=== PATIENT | female | born 1980 | race Caucasian/White ===

== ENCOUNTER → 2016-06-07 | Outpatient (CLI) | payer BC ==
[2016-06-07 18:43] LABS: BASO % 0.7 % (0.0-1.0); EOS # 0.3 K/mm3 (0.0-0.50); EOS % 4.6 % (0.0-3.0); LARGE UNSTAINED CELL # 0.1 K/mm3 (0.0-0.4); LARGE UNSTAINED CELL % 1.3 % (0.0-4.0); LYMPH # 1.8 K/mm3 (1.5-4.5); LYMPH % 23.3 % (24.0-44.0); MEAN CORPUSCULAR HEMOGLOBIN 28.9 pg (27.0-33.0); MEAN CORPUSCULAR HGB CONC 31.9 g/dl (32.0-36.5); MEAN CORPUSCULAR VOLUME 90.5 fl (80.0-96.0); MONO # 0.3 K/mm3 (0.0-0.8); MONO % 4.6 % (0.0-5.0); NEUTROPHILS # 4.7 K/mm3 (1.8-7.7); NEUTROPHILS % 65.5 % (36.0-66.0); PLATELET COUNT, AUTOMATED 195 k/mm3 (150-450); RED CELL DISTRIBUTION WIDTH 14.5 % (11.5-14.5); WHITE BLOOD COUNT 7.2 K/mm3 (4.0-10.0)
[2016-06-07 18:59] LABS: PROLACTIN 4.2 NG/ML
[2016-06-07 19:06] LABS: FREE T4 1.78 NG/DL (0.76-1.46)
== END ==
LOC: M SMT 11:40
PROVIDERS: ATTEND Nurse Practitioner Women's Health
DX: N92.1 Excessive and frequent menstruation with irregular cycle (principal)

== ENCOUNTER → 2016-07-01 | Outpatient (CLI) | payer BC ==
[~2016-07-01] MED LIST: CENTCHW4 PO; FERR325T3 PO; IBUP600T26 PO; LORT5TAB PO; VITA500C10 PO
[2016-07-01 09:43] LABS: ALBUMIN 3.8 GM/DL (3.2-5.2); ALBUMIN/GLOBULIN RATIO 1.27 (1.00-1.93); ALKALINE PHOSPHATASE 74 U/L (45-117); ALT/SGPT 16 U/L (12-78); ANION GAP 6 MEQ/L (8-16); AST/SGOT 11 U/L (15-37); BILIRUBIN,TOTAL 0.3 MG/DL (0.2-1.0); BLOOD UREA NITROGEN 9 MG/DL (7-18); CARBON DIOXIDE LEVEL 25 MEQ/L (21-32); CHLORIDE LEVEL 111 MEQ/L (98-107); CREATININE FOR GFR 0.64 MG/DL (0.55-1.02); GLOMERULAR FILTRATION RATE > 60.0 (>60); GLUCOSE, FASTING 86 MG/DL (70-105); POTASSIUM SERUM 4.6 MEQ/L (3.5-5.1); SODIUM LEVEL 142 MEQ/L (136-145); TOTAL PROTEIN 6.8 GM/DL (6.4-8.2)
--- NOTE | 2016-07-01 10:48 | ECGEPIP ---
Stationary ECG Study [facility] Test Date: 2016-07-01 Pat Name: RULA ACR Department: Room: - Gender: F [employer] Supervisor: JOSE FRANCISCO : 1980 Requested By: Eugene Knox Order Number: [id number] Reading MD: Jason Wise Measurements Intervals [place] Rate: 60 P: 44 PA: 189 QRS: 51 QRSD: 88 T: 50 QT: 403 QTc: 404 Interpretive Statements SINUS RHYTHM WITH SINUS ARRHYTHMIA Poor R-wave progression V1-V3. No prior ECG available for comparison at the time of interpretation. Electronically Signed On 07-01-2016 10:48:07 EDT by Jason Wise
== END ==
LOC: M LAB 08:57
PROVIDERS: ATTEND Anesthesiology
DX: D50.9 Iron deficiency anemia, unspecified (principal)

== ENCOUNTER 2016-07-03 06:01 | Day surgery (SDC) | payer BC ==
[2016-07-03] VITALS (7 sets, daily range): BP systolic 84–100; BP diastolic 46–55
[~2016-07-03] VITALS: Ht 157.5 cm; Wt 64.0 kg
[~2016-07-03 06:01] MED LIST changes: -IBUP600T26 PO; -LORT5TAB PO; +LR 1,000 ML IV SCH
[2016-07-03] MEDS ORDERED: LR 1,000 ML IV SCH ×3 (06:15→09:30)
[2016-07-03 06:20] LABS: MEAN CORPUSCULAR HEMOGLOBIN 29.1 pg (27.0-33.0); MEAN CORPUSCULAR HGB CONC 32.6 g/dl (32.0-36.5); MEAN CORPUSCULAR VOLUME 89.2 fl (80.0-96.0); RED CELL DISTRIBUTION WIDTH 14.8 % (11.5-14.5); WHITE BLOOD COUNT 4.9 K/mm3 (4.0-10.0)
[2016-07-03 06:33] LABS: CONTROL LINE HCG INT CTR LINE PRESENT
[2016-07-03] MEDS ORDERED: GLYCOPYRROLATE INJ 0.2 MG/ML 2 ML VIAL As Ordered ONE (07:51)
[2016-07-03] MEDS ORDERED: fentaNYL 100 MCG/2 ML INJECTION (J3010) As Ordered ONE (07:51)
[2016-07-03] MEDS ORDERED: ROCURONIUM BROMIDE 50 MG/5 ML VIAL As Ordered ONE (07:51)
[2016-07-03] MEDS ORDERED: LIDOCAINE 2% INJ 100 MG/5 ML SDV (FOR ANES.) As Ordered ONE (07:51)
[2016-07-03] MEDS ORDERED: MIDAZOLAM INJ 2 MG/2 ML VIAL (J2250) As Ordered ONE (07:51)
[2016-07-03] MEDS ORDERED: PROPOFOL 200 MG/20 ML VIAL As Ordered ONE (07:51)
[2016-07-03] MEDS ORDERED: NEOSTIGMINE 1MG/ML 5 ML SYRINGE (J2710) As Ordered ONE (07:51)
[2016-07-03] MEDS ORDERED: ONDANSETRON 4MG/2ML VIAL (J2405) As Ordered ONE (07:52)
[2016-07-03] MEDS ORDERED: METOCLOPRAMIDE INJ 10MG/2ML VIAL (J2765) As Ordered ONE (07:52)
[2016-07-03] MEDS ORDERED: HYDROmorphone HCL 2 MG/ML 1ML VIAL (J1170) As Ordered ONE (08:09)
[2016-07-03] MEDS ORDERED: SEVOFLURANE INHAL SOLN 250 ML BTL As Ordered ONE (08:09)
[2016-07-03] MEDS ORDERED: DESFLURANE 240 ML INHALANT As Ordered ONE (08:09)
[2016-07-03] MEDS ORDERED: ePHEDrine SULFATE 25 MG/5 ML(5MG/ML) SYRINGE As Ordered ONE (08:10)
[2016-07-03] MEDS ORDERED: KETOROLAC 60 MG/2 ML VIAL (J1885) As Ordered ONE (08:18)
[2016-07-03] MEDS ORDERED: MORPHINE PCA 1MG/ML 100ML CADD As Ordered ONE (09:09)
[2016-07-03] MEDS ORDERED: PERCOCET 5MG/325MG TAB As Ordered ONE (09:09)
[2016-07-03] MEDS: PERCOCET 5MG/325MG TAB PO PRN ×2 (09:13→09:45)
[2016-07-03] MEDS ORDERED: ONDANSETRON 4MG/2ML VIAL (J2405) IV PRN (09:15)
[2016-07-03] MEDS ORDERED: METOCLOPRAMIDE INJ 10MG/2ML VIAL (J2765) IV PRN (09:15)
[2016-07-03] MEDS ORDERED: fentaNYL 100 MCG/2 ML INJECTION (J3010) IV PRN (09:15)
[2016-07-03] MEDS ORDERED: MEPERIDINE INJ 25 MG/ML VIAL (J2175) IV PRN (09:15)
[2016-07-03] MEDS ORDERED: EPIDURAL/PCA KEYS XX PRN (09:30)
[2016-07-03] MEDS ORDERED: NALOXONE INJ 0.4 MG/1 ML VIAL (J2310) IV PRN (09:30)
[2016-07-03] MEDS ORDERED: diphenhydrAMINE INJ 50MG/ML VIAL (J1200) IV PRN (09:30)
[2016-07-03] MEDS ORDERED: IBUPROFEN 600 MG TAB PO PRN (09:30)
[2016-07-03] MEDS ORDERED: NALBUPHINE HCL 10 MG/ML AMP (J2300) IV PRN (09:30)
[2016-07-03] MEDS ORDERED: MORPHINE PCA 1MG/ML 100ML CADD IV PRN (09:30)
--- NOTE | 2016-07-03 12:09 | RO ---
DATE OF PROCEDURE: 07/03/2016 PREOPERATIVE DIAGNOSIS: Pain, bleeding, failed conservative efforts, dissatisfaction with Nexplanon, dyspareunia, uterine tenderness. POSTOPERATIVE DIAGNOSIS: Pain, bleeding, failed conservative efforts, dissatisfaction with Nexplanon, dyspareunia, uterine tenderness. PROCEDURE: Total vaginal hysterectomy with left salpingectomy. The patient retains her ovaries and her right fallopian tube. Removal of Nexplanon from left arm. SURGEON: Dr. Darcie Owen CATERPILLAR DRIVER: Aleida Mehta ANESTHESIA: General endotracheal anesthesia. BRIEF DESCRIPTION OF PROCEDURE AND FINDINGS: Flores was brought to the operating room where sufficient general endotracheal anesthesia was induced and she was prepped, draped and positioned in the usual sterile fashion. We went ahead and removed the Nexplanon first. It was in the left arm and had been marked preoperatively. Then, made a small incision over the insertion site and using careful dissection around the capsule removed the Nexplanon entirely. We did not have any difficulty with this procedure. We then with the small incision rather than sewing it went ahead and glued it and placed Steri-Strip and that portion of the procedure was done. We turned our attention then to the pelvis where the bladder was emptied. The anterior and posterior aspect of the cervix were grasped with single tooth tenacula. Then, with anterior and posterior retractor in place, a circumferential incision was made around the base of the cervix. The cardinal ligaments were isolated, clamped, transected, and ligated. The posterior reflection of the peritoneum was then entered and the uterosacral ligaments clamped, transected, and ligated and marked for later reattachment to the cuff. We then continued the dissection anteriorly where the reflection was not reached immediately, but we carefully sharply dissected the tissues away so as to avoid any injury to the bladder. I isolated the uterine vasculature and carefully clamped, transected and ligated it. Then subsequently also incised the reflection of the peritoneum anteriorly and continued clamping, transecting and ligating the uterine vasculature in a sequential fashion using Merissa'Meraz clamps, super cut scissors and a #0 Vicryl suture which was used throughout. We then reached the level of the utero-ovarian suspensory ligaments and the round ligaments. These too were clamped, transected and ligated, as were the fallopian tubes because of their proximity to the utero-ovarian suspensory ligament and our desire to avoid any injury to the ovaries, which this 35-year-old patient of course wanted to keep. After removal of the uterus, we then went back with the Rohan and were able to deliver the fimbria on the left side and then proceed to get the rest of that left tube and we clamped, transected and ligated the pedicle to the tube without any evidence of injury to the ovary and watched those pedicles for some time before turning to the right side. The tube on the right side was scarred around behind the ovary and I could not see it. Although the ovary was normal in appearance, I could not see an access to that tube that would not have the risk of compromising the ovarian blood supply and so decision was made just to leave that fallopian tube. Each of the pedicles were then carefully evaluated. We had good hemostasis. Angle stitches of #0 Vicryl were taken and of course the uterosacrals were reattached to the cuff. The cuff was closed with a running stitch of #0 Vicryl in the usual fashion with good approximation and hemostasis achieved. The procedure was then ended. Estimated blood loss for the procedure was about 30 mL. Fluid replacement was crystalloid. Complications: None. Condition and Disposition: Flores tolerated the procedure well and was recovering in the recovery room in good condition.
[2016-07-04] VITALS: BP 98/53
[2016-07-04 04:00] VITALS: BP 109/58
[2016-07-04] MEDS ORDERED: NORCO, ANEXSIA 5/325MG TABLET (HYDROcodone/ACETAMINOPHEN) PO PRN (06:00)
[2016-07-04] MEDS ORDERED: LORT5TAB PO (08:42)
[2016-07-04] MEDS ORDERED: IBUP600T26 PO (08:42)
[2016-07-04 09:30] VITALS: BP 104/61
== END 2016-07-04 10:45 | disposition home or self-care (01) ==
LOC: M SDC 06:01 → M PED 10:25 → M SDC 17:50 → M PED 17:50 → M SDC 07-04 10:45
PROVIDERS: ATTEND Obstetrics & Gynecology
DX: N92.0 Excessive and frequent menstruation with regular cycle (principal); R10.2 Pelvic and perineal pain; N94.10 Unspecified dyspareunia; D64.9 Anemia, unspecified; K90.9 Intestinal malabsorption, unspecified; Z98.84 Bariatric surgery status; F17.210 Nicotine dependence, cigarettes, uncomplicated; Z79.899 Other long term (current) drug therapy
CPT/HCPCS: 36415; 58262; 84703; 85027; 86850; 86900; 86901; 88309; J0690; J1170; J1885; J2250; J2405; J2710; J2765; J3010

== ENCOUNTER → 2016-07-09 | Outpatient (CLI) | payer BC ==
[~2016-07-09] MED LIST changes: +IBUP600T26 PO; +LORT5TAB PO; -LR 1,000 ML IV SCH
[2016-07-09 16:14] LABS: BASO % 0.6 % (0.0-1.0); EOS # 0.3 K/mm3 (0.0-0.50); EOS % 4.5 % (0.0-3.0); LARGE UNSTAINED CELL # 0.1 K/mm3 (0.0-0.4); LARGE UNSTAINED CELL % 0.9 % (0.0-4.0); LYMPH # 1.7 K/mm3 (1.5-4.5); LYMPH % 26.1 % (24.0-44.0); MEAN CORPUSCULAR HEMOGLOBIN 28.4 pg (27.0-33.0); MEAN CORPUSCULAR HGB CONC 31.4 g/dl (32.0-36.5); MEAN CORPUSCULAR VOLUME 90.3 fl (80.0-96.0); MONO # 0.3 K/mm3 (0.0-0.8); MONO % 4.8 % (0.0-5.0); PLATELET COUNT, AUTOMATED 248 k/mm3 (150-450); WHITE BLOOD COUNT 6.3 K/mm3 (4.0-10.0)
== END ==
LOC: M ADAMS 13:02
PROVIDERS: ATTEND Physician Assistant
DX: R42 Dizziness and giddiness (principal)

== ENCOUNTER → 2016-07-28 | Outpatient (REF) | payer BC ==
[2016-07-28 12:55] LABS: BASO % 0.6 % (0.0-1.0); EOS # 0.4 K/mm3 (0.0-0.50); EOS % 6.6 % (0.0-3.0); LARGE UNSTAINED CELL # 0.1 K/mm3 (0.0-0.4); LARGE UNSTAINED CELL % 1.2 % (0.0-4.0); LYMPH % 29.5 % (24.0-44.0); MEAN CORPUSCULAR HEMOGLOBIN 29.3 pg (27.0-33.0); MEAN CORPUSCULAR HGB CONC 32.3 g/dl (32.0-36.5); MEAN CORPUSCULAR VOLUME 90.9 fl (80.0-96.0); MONO # 0.3 K/mm3 (0.0-0.8); MONO % 3.9 % (0.0-5.0); NEUTROPHILS # 3.7 K/mm3 (1.8-7.7); NEUTROPHILS % 58.2 % (36.0-66.0); PLATELET COUNT, AUTOMATED 170 k/mm3 (150-450); RED CELL DISTRIBUTION WIDTH 15.9 % (11.5-14.5); WHITE BLOOD COUNT 6.4 K/mm3 (4.0-10.0)
[2016-07-28 13:18] LABS: FOLATE 6.6 NG/ML
[2016-07-28 13:19] LABS: VITAMIN B12 LEVEL 845 PG/ML
[2016-07-28 13:34] LABS: ALBUMIN 3.9 GM/DL (3.2-5.2); ALBUMIN/GLOBULIN RATIO 1.11 (1.00-1.93); ALKALINE PHOSPHATASE 59 U/L (45-117); ALT/SGPT 16 U/L (12-78); ANION GAP 6 MEQ/L (8-16); AST/SGOT 10 U/L (15-37); BILIRUBIN,TOTAL 0.4 MG/DL (0.2-1.0); BLOOD UREA NITROGEN 9 MG/DL (7-18); CALCIUM LEVEL 8.6 MG/DL (8.5-10.1); CARBON DIOXIDE LEVEL 27 MEQ/L (21-32); CHLORIDE LEVEL 109 MEQ/L (98-107); CHOLESTEROL LEVEL 187 MG/DL (<200); CREATININE FOR GFR 0.68 MG/DL (0.55-1.02); FERRITIN 25 NG/ML (8-252); FREE T4 1.83 NG/DL (0.76-1.46); GLOMERULAR FILTRATION RATE > 60.0 (>60); GLUCOSE, FASTING 94 MG/DL (70-105); MAGNESIUM LEVEL 2.2 MG/DL (1.8-2.4); POTASSIUM SERUM 4.5 MEQ/L (3.5-5.1); SODIUM LEVEL 142 MEQ/L (136-145); TOTAL PROTEIN 7.4 GM/DL (6.4-8.2); TRIGLYCERIDES LEVEL 73 MG/DL (<150)
== END ==
LOC: M SFHCADAM 09:29
PROVIDERS: ATTEND Physician Assistant Medical
DX: Z98.890 Other specified postprocedural states (principal); D50.9 Iron deficiency anemia, unspecified; D49.7 Neoplasm of unspecified behavior of endocrine glands and other parts of nervous system

== ENCOUNTER 2016-08-01 09:03 | Outpatient (CLI) | payer BC ==
[~2016-08-01] VITALS: Ht 157.5 cm; Wt 64.0 kg
[2016-08-01] MEDS ORDERED: IRON SUCROSE 25 MG in NS 50 ML IV ONE (10:00)
[2016-08-01] MEDS ORDERED: IRON SUCROSE 75 MG in NS 100 ML IV ONE (11:00)
== END 2016-08-01 13:00 | disposition home or self-care (01) ==
LOC: M INFU 09:03
PROVIDERS: ATTEND Physician Assistant Medical
DX: D50.9 Iron deficiency anemia, unspecified (principal); Z79.899 Other long term (current) drug therapy
CPT/HCPCS: 96365; 96366; J1756

== ENCOUNTER 2016-08-08 11:46 | Outpatient (CLI) | payer BC ==
[~2016-08-08] VITALS: Ht 154.9 cm; Wt 63.6 kg
[2016-08-08] MEDS ORDERED: IRON SUCROSE 200 MG in NS 200 ML IV ONE (13:00)
== END 2016-08-08 15:00 | disposition home or self-care (01) ==
LOC: M INFU 11:46
PROVIDERS: ATTEND Physician Assistant Medical
DX: D50.9 Iron deficiency anemia, unspecified (principal); D49.7 Neoplasm of unspecified behavior of endocrine glands and other parts of nervous system; Z98.84 Bariatric surgery status; F17.210 Nicotine dependence, cigarettes, uncomplicated; Z79.1 Long term (current) use of non-steroidal anti-inflammatories (NSAID); Z79.899 Other long term (current) drug therapy
CPT/HCPCS: 96365; 96366; J1756

== ENCOUNTER 2016-08-14 08:45 | Outpatient (CLI) | payer BC ==
[~2016-08-14] VITALS: Ht 154.9 cm; Wt 63.6 kg
[2016-08-14] MEDS ORDERED: IRON SUCROSE 200 MG in NS 200 ML IV ONE (09:15)
== END 2016-08-14 11:15 | disposition home or self-care (01) ==
LOC: M INFU 08:45
PROVIDERS: ATTEND Physician Assistant Medical
DX: D50.9 Iron deficiency anemia, unspecified (principal); Z79.899 Other long term (current) drug therapy; Z72.0 Tobacco use; Z98.84 Bariatric surgery status
CPT/HCPCS: 96365; 96366; J1756

== ENCOUNTER → 2016-09-25 | Outpatient (CLI) | payer BC ==
--- NOTE | 2016-09-26 10:38 | REP ---
REASON FOR EXAM: Followup pituitary tumor. The latest prior examination 11/08/2010 was reviewed. The prior examination showed a pituitary mass, particularly right-sided measuring 9 mm transverse x 8 mm anterior to posterior x 6.5 mm cephalocaudal dimensions. The mass was seen to extend into the suprasellar cistern on the prior exam and was also seen to deviate the infundibulum to the left. No cavernous sinus extension was noted and the optic chiasm and hypothalamus were un-insulted by the mass. Today's examination was performed before and after the administration of intravenous gadolinium. Gadolinium utilized 6.4 mL of ProHance. Once again, note is made of a pituitary gland mass, which today's measures 1.2 cm transverse dimension x 9 mm anterior to posterior x 1.1 cm inferior. Note is again made of infundibular deviation to the left. Suprasellar cistern extension is again noted and seen to be increased from the prior exam. No definite cavernous sinus extension is noted and once again, the optic chiasm and hypothalamus are un-insulted. Generalized brain imaging obtained during the acquisition of this exam shows no change when compared to the prior exam. IMPRESSION: The pituitary tumor, as described above, has increased in size. Signed by Ben Marvin DO 09/26/2016 11:53 A
== END ==
LOC: M RAD 18:10
PROVIDERS: ATTEND Physician Assistant Medical
DX: D49.7 Neoplasm of unspecified behavior of endocrine glands and other parts of nervous system (principal)
CPT/HCPCS: 70553; A9576

== ENCOUNTER → 2016-09-28 | Outpatient (REF) | payer BC ==
[2016-09-28 13:14] LABS: MEAN CORPUSCULAR HEMOGLOBIN 31.7 pg (27.0-33.0); MEAN CORPUSCULAR HGB CONC 33.2 g/dl (32.0-36.5); MEAN CORPUSCULAR VOLUME 95.3 fl (80.0-96.0); RED CELL DISTRIBUTION WIDTH 15.2 % (11.5-14.5); WHITE BLOOD COUNT 8.1 K/mm3 (4.0-10.0)
== END ==
LOC: M SFHCADAM 10:35
PROVIDERS: ATTEND Physician Assistant Medical
DX: D50.9 Iron deficiency anemia, unspecified (principal)

== ENCOUNTER → 2016-11-08 | Outpatient (REF) | payer BC ==
[~2016-11-08] MED LIST changes: +IBUP-1022 PO; -IBUP600T26 PO
[2016-11-08 18:05] LABS: PERCENT SATURATION 35.3 % (13.2-45.0)
== END ==
LOC: M SFHCADAM 15:25
PROVIDERS: ATTEND Physician Assistant Medical
DX: D50.9 Iron deficiency anemia, unspecified (principal)

== ENCOUNTER → 2016-12-14 | Outpatient (REF) | payer BC | LOC: M SFHCADAM 09:46 | PROVIDERS: ATTEND Physician Assistant Medical | DX: D50.9 Iron deficiency anemia, unspecified (principal) ==

== ENCOUNTER 2017-01-15 08:08 | Outpatient (CLI) | payer BC ==
[2017-01-15] MEDS ORDERED: IRON SUCROSE 100 MG in NS 100 ML IV ONE (09:00)
== END 2017-01-15 10:00 | disposition home or self-care (01) ==
LOC: M INFU 08:08
PROVIDERS: ATTEND Physician Assistant Medical
DX: D50.9 Iron deficiency anemia, unspecified (principal); Z98.84 Bariatric surgery status; Z72.0 Tobacco use; Z79.899 Other long term (current) drug therapy
CPT/HCPCS: 96365; J1756

== ENCOUNTER → 2017-01-18 | Outpatient (REF) | payer BC ==
[2017-01-18 16:24] LABS: FOLLICLE STIMULATING HORMONE 7.3 mIU/mL; LUTEINIZING HORMONE 1.7 mIU/mL; PROLACTIN 7.3 NG/ML
[2017-01-18 17:18] LABS: FREE T4 1.68 NG/DL (0.76-1.46)
== END ==
LOC: M LABDRAW1 14:27
PROVIDERS: ATTEND Internal Medicine Endocrinology, Diabetes & Metabolism
DX: D35.2 Benign neoplasm of pituitary gland (principal)

== ENCOUNTER 2017-01-29 08:21 | Outpatient (CLI) | payer BC ==
[~2017-01-29] VITALS: Ht 154.9 cm; Wt 63.6 kg
[2017-01-29] MEDS ORDERED: IRON SUCROSE 200 MG in NS 200 ML IV ONE (09:00)
== END 2017-01-29 12:05 | disposition home or self-care (01) ==
LOC: M INFU 08:21
PROVIDERS: ATTEND Physician Assistant Medical
DX: D50.9 Iron deficiency anemia, unspecified (principal); F41.9 Anxiety disorder, unspecified; F17.210 Nicotine dependence, cigarettes, uncomplicated; Z79.899 Other long term (current) drug therapy; Z98.84 Bariatric surgery status
CPT/HCPCS: 96365; 96366; J1756

== ENCOUNTER → 2017-04-13 | Outpatient (REF) | payer BC ==
[2017-04-13 13:06] LABS: CORTISOL AM 11.9 UG/DL (4.3-22.4)
[2017-04-13 13:30] LABS: FREE T4 1.55 NG/DL (0.76-1.46)
== END ==
LOC: M LABDRWAD 12:17
DX: D35.2 Benign neoplasm of pituitary gland (principal)
CPT/HCPCS: 84443

== ENCOUNTER → 2017-05-17 | Outpatient (REF) | payer BC ==
[2017-05-17 20:16] LABS: BASO % 0.5 % (0.0-1.0); EOS # 0.2 10^3/uL (0.0-0.50); EOS % 2.2 % (0.0-3.0); HEMATOCRIT 39.3 % (36.0-47.0); IMMATURE GRANULOCYTE % 0.1 % (0-3.0); LYMPH # 2.5 10^3/uL (1.5-4.5); LYMPH % 28.5 % (24.0-44.0); MEAN CORPUSCULAR HEMOGLOBIN 31.8 pg (27.0-33.0); MEAN CORPUSCULAR HGB CONC 33.1 g/dl (32.0-36.5); MEAN CORPUSCULAR VOLUME 96.1 fl (80.0-96.0); MONO # 0.4 10^3/uL (0.0-0.8); MONO % 4.1 % (0.0-5.0); NEUTROPHILS # 5.7 10^3/uL (1.8-7.7); NEUTROPHILS % 64.6 % (36.0-66.0); PLATELET COUNT, AUTOMATED 190 10^3/uL (150-450); RED BLOOD COUNT 4.09 10^6/uL (4.00-5.40); RED CELL DISTRIBUTION WIDTH 12.9 % (11.5-14.5); WHITE BLOOD COUNT 8.8 10^3/uL (4.0-10.0)
[2017-05-17 20:27] LABS: FERRITIN 63 NG/ML (8-252); IRON (FE) 108 UG/DL (50-170); PERCENT SATURATION 42.5 % (13.2-45.0); TOTAL IRON BINDING CAPACITY 254 UG/DL (250-450)
== END ==
LOC: M SFHCADAM 13:34
DX: D50.9 Iron deficiency anemia, unspecified (principal)
CPT/HCPCS: 83550

== ENCOUNTER → 2017-06-19 | Outpatient (CLI) | payer BC ==
[~2017-06-19] MED LIST changes: -CENTCHW4 PO; -FERR325T3 PO; -IBUP-1022 PO; -LORT5TAB PO; +PROHANCE 279.3MG/ML 15ML VIAL (A9576) As Ordered; -VITA500C10 PO
== END ==
LOC: M RAD 08:04
DX: D35.2 Benign neoplasm of pituitary gland (principal)
CPT/HCPCS: A9576

== ENCOUNTER → 2017-07-01 | Outpatient (REF) | payer BC ==
[2017-07-01 17:51] LABS: BASO # 0.1 10^3/uL (0.0-0.2); BASO % 0.9 % (0.0-1.0); EOS # 0.3 10^3/uL (0.0-0.50); EOS % 4.9 % (0.0-3.0); HEMATOCRIT 42.6 % (36.0-47.0); HEMOGLOBIN 14.1 g/dl (12.0-16.0); IMMATURE GRANULOCYTE % 0.1 % (0-3.0); LYMPH # 2.4 10^3/uL (1.5-4.5); LYMPH % 34.1 % (24.0-44.0); MEAN CORPUSCULAR HEMOGLOBIN 32.2 pg (27.0-33.0); MEAN CORPUSCULAR HGB CONC 33.1 g/dl (32.0-36.5); MEAN CORPUSCULAR VOLUME 97.3 fl (80.0-96.0); MONO # 0.4 10^3/uL (0.0-0.8); MONO % 6.3 % (0.0-5.0); NEUTROPHILS # 3.8 10^3/uL (1.8-7.7); NEUTROPHILS % 53.7 % (36.0-66.0); PLATELET COUNT, AUTOMATED 224 10^3/uL (150-450); RED BLOOD COUNT 4.38 10^6/uL (4.00-5.40); RED CELL DISTRIBUTION WIDTH 12.7 % (11.5-14.5)
[2017-07-01 18:14] LABS: FERRITIN 35 NG/ML (8-252); IRON (FE) 94 UG/DL (50-170); PERCENT SATURATION 30.2 % (13.2-45.0); TOTAL IRON BINDING CAPACITY 311 UG/DL (250-450)
== END ==
LOC: M SFHCADAM 10:05
DX: D50.9 Iron deficiency anemia, unspecified (principal)
CPT/HCPCS: 83550

== ENCOUNTER → 2017-10-11 | Outpatient (REF) | payer BC ==
[2017-10-11 12:35] LABS: BASO % 0.6 % (0.0-1.0); EOS # 0.2 10^3/uL (0.0-0.50); EOS % 3.3 % (0.0-3.0); HEMATOCRIT 40.8 % (36.0-47.0); HEMOGLOBIN 13.8 g/dl (12.0-15.5); IMMATURE GRANULOCYTE % 0.2 % (0-3.0); LYMPH # 2.3 10^3/uL (1.5-4.5); LYMPH % 35.6 % (24.0-44.0); MEAN CORPUSCULAR HGB CONC 33.8 g/dl (32.0-36.5); MEAN CORPUSCULAR VOLUME 94.7 fl (80.0-96.0); MONO # 0.4 10^3/uL (0.0-0.8); NEUTROPHILS # 3.5 10^3/uL (1.8-7.7); NEUTROPHILS % 54.3 % (36.0-66.0); PLATELET COUNT, AUTOMATED 195 10^3/uL (150-450); RED BLOOD COUNT 4.31 10^6/uL (4.00-5.40); RED CELL DISTRIBUTION WIDTH 12.8 % (11.5-14.5); WHITE BLOOD COUNT 6.4 10^3/uL (4.0-10.0)
[2017-10-11 12:50] LABS: FERRITIN 27 NG/ML (8-252); IRON (FE) 116 UG/DL (50-170); TOTAL IRON BINDING CAPACITY 276 UG/DL (250-450)
== END ==
LOC: M SFHCADAM 11:09
DX: D50.9 Iron deficiency anemia, unspecified (principal)
CPT/HCPCS: 83550

== ENCOUNTER → 2017-11-06 | Outpatient (CLI) | payer BC | LOC: M ADAMS 11:09 | DX: M54.5 Low back pain (principal) | CPT/HCPCS: 72100 ==

== ENCOUNTER → 2017-12-21 | Outpatient (CLI) | payer BC ==
[~2017-12-21] MED LIST changes: -PROHANCE 279.3MG/ML 15ML VIAL (A9576) As Ordered; +PROHANCE 279.3MG/ML 5ML VIAL (A9576) As Ordered
== END ==
LOC: M RAD 07:56
DX: D35.2 Benign neoplasm of pituitary gland (principal)
CPT/HCPCS: A9576

== ENCOUNTER → 2017-12-28 | Outpatient (CLI) | payer BC ==
[2017-12-28 14:13] LABS: FREE T4 1.29 NG/DL (0.76-1.46)
[2017-12-28 21:41] LABS: CORTISOL AM 11.5 UG/DL (4.3-22.4)
== END ==
LOC: M LABDRAWP 10:08
DX: D35.2 Benign neoplasm of pituitary gland (principal)
CPT/HCPCS: 84443

== ENCOUNTER → 2018-04-11 | Outpatient (REF) | payer BC ==
[~2018-04-11] MED LIST changes: +CENTCHW4 PO; +FERR325T3 PO; +IBUP-1022 PO; +LORT5TAB PO; -PROHANCE 279.3MG/ML 5ML VIAL (A9576) As Ordered; +VITA500C10 PO
[2018-04-11 13:28] LABS: HEMATOCRIT 41.3 % (36.0-47.0); HEMOGLOBIN 13.7 g/dl (12.0-15.5); MEAN CORPUSCULAR HEMOGLOBIN 31.9 pg (27.0-33.0); MEAN CORPUSCULAR HGB CONC 33.2 g/dl (32.0-36.5); PLATELET COUNT, AUTOMATED 230 10^3/uL (150-450); WHITE BLOOD COUNT 10.7 10^3/uL (4.0-10.0)
[2018-04-11 13:58] LABS: PERCENT SATURATION 30.6 % (13.2-45.0)
== END ==
LOC: M SFHCADAM 11:19
PROVIDERS: ATTEND Physician Assistant Medical
DX: D50.9 Iron deficiency anemia, unspecified (principal)

== ENCOUNTER → 2018-05-19 | Outpatient (REF) | payer BC | LOC: M LAB REF 18:22 | PROVIDERS: ATTEND Physician Assistant Medical | DX: R19.5 Other fecal abnormalities (principal) ==

== ENCOUNTER → 2018-06-09 | Outpatient (REF) | payer BC | LOC: M LAB REF 17:54 | PROVIDERS: ATTEND Physician Assistant | DX: R35.0 Frequency of micturition (principal) ==

== ENCOUNTER → 2018-06-20 | Outpatient (CLI) | payer BC ==
--- NOTE | 2018-06-20 18:51 | REP ---
Clinical: Right upper quadrant pain. Technique: Real time henao scale ultrasound examination using curved array transducer. Findings: Liver and pancreas are normal in contour, size, echogenicity without focal hepatic or pancreatic lesion identified. Evidence for prior cholecystectomy. No biliary ductal dilatation is appreciated and the common bile duct measures 2 mm diameter. The right kidney is normal in reniform shape without hydronephrosis and measures 11.8 x 4.8 x 3.7 cm. No ascites. Impression: Prior cholecystectomy. Remainder examination is within normal limits. Electronically Signed by Uvaldo Gould MD 06/20/2018 06:42 P
== END ==
LOC: M RAD 09:17
PROVIDERS: ATTEND Physician Assistant Medical
DX: R10.11 Right upper quadrant pain (principal); Z90.49 Acquired absence of other specified parts of digestive tract

== ENCOUNTER → 2018-06-23 | Outpatient (CLI) | payer BC ==
[2018-06-23 13:18] LABS: BASO % 0.4 % (0.0-1.0); EOS # 0.2 10^3/uL (0.0-0.50); EOS % 2.4 % (0.0-3.0); HEMATOCRIT 40.7 % (36.0-47.0); HEMOGLOBIN 13.3 g/dl (12.0-15.5); LYMPH % 22.2 % (24.0-44.0); MEAN CORPUSCULAR HEMOGLOBIN 31.7 pg (27.0-33.0); MEAN CORPUSCULAR HGB CONC 32.7 g/dl (32.0-36.5); MEAN CORPUSCULAR VOLUME 97.1 fl (80.0-96.0); MONO # 0.5 10^3/uL (0.0-0.8); MONO % 5.4 % (0.0-5.0); NEUTROPHILS # 6.2 10^3/uL (1.8-7.7); NEUTROPHILS % 69.3 % (36.0-66.0); PLATELET COUNT, AUTOMATED 193 10^3/uL (150-450); RED BLOOD COUNT 4.19 10^6/uL (4.00-5.40); WHITE BLOOD COUNT 8.9 10^3/uL (4.0-10.0)
[2018-06-23 13:29] LABS: ALBUMIN 3.8 GM/DL (3.2-5.2); ALT/SGPT 20 U/L (12-78); BILIRUBIN,TOTAL 0.4 MG/DL (0.2-1.0); BLOOD UREA NITROGEN 10 MG/DL (7-18); CALCIUM LEVEL 8.2 MG/DL (8.5-10.1); CARBON DIOXIDE LEVEL 27 MEQ/L (21-32); CHLORIDE LEVEL 111 MEQ/L (98-107); CREATININE FOR GFR 0.66 MG/DL (0.55-1.30); FREE T4 1.79 NG/DL (0.76-1.46); FREE THYROXINE INDEX 2.5 % (1.3-4.8); GLOMERULAR FILTRATION RATE > 60.0 (>60); GLUCOSE, FASTING 94 MG/DL (70-100); POTASSIUM SERUM 4.7 MEQ/L (3.5-5.1); RHEUMATOID FACTOR QUANT < 10.0 IU/ML (<15.0); SODIUM LEVEL 141 MEQ/L (136-145); T UPTAKE 33 % (30-39); THYROXINE (T4) 7.6 UG/DL (4.5-12.0)
[2018-06-23 13:36] LABS: HEMOGLOBIN A1c 5.5 %
[2018-06-23 13:57] LABS: ERYTHROCYTE SEDIMENTATION RATE 6 mm/hr (0-20)
[2018-06-26 15:14] LABS: ANTINUCLEAR ANTIBODIES DIRECT Negative (Negative); Methylmalonic Acid 233 nmol/L (0-378)
[2018-06-27 10:15] LABS: VITAMIN E(ALPHA TOCOPHEROL) 8.2 mg/L (5.9-19.4); VITAMIN E(GAMMA TOCOPHEROL) 1.5 mg/L (0.7-4.9)
[2018-06-28 00:09] LABS: VITAMIN B1 LEVEL WHOLE BLOOD 108.8 nmol/L (66.5-200.0); VITAMIN B6,PYRIDOXAL PHOSPHATE 5.7 ug/L (2.0-32.8)
== END ==
LOC: M LABDRWAD 11:02
PROVIDERS: ATTEND Psychiatry & Neurology Neurology
DX: E11.9 Type 2 diabetes mellitus without complications (principal); E07.9 Disorder of thyroid, unspecified; R20.0 Anesthesia of skin; R53.83 Other fatigue

== ENCOUNTER → 2018-07-06 | Outpatient (CLI) | payer BC ==
[2018-07-08 09:07] LABS: FOLATE 6.4 NG/ML (>5.4)
== END ==
LOC: M ADAMS 11:08
PROVIDERS: ATTEND Psychiatry & Neurology Neurology
DX: R20.0 Anesthesia of skin (principal)

== ENCOUNTER → 2018-07-19 | Outpatient (CLI) | payer BC ==
[~2018-07-19] MED LIST changes: +PROHANCE 279.3MG/ML 15ML VIAL (A9576) As Ordered ONE
--- NOTE | 2018-07-19 10:37 | REP ---
MRI brain and pituitary without and with IV contrast: History: The patient is status post transsphenoidal resection for pituitary adenoma. Comparison is made with prior MRI studies, the most recent of which is from December 21, 2017. June 19, 2017 and September 25, 2016 prior studies are also reviewed. Technique: Axial, coronal and sagittal imaging planes are included. Spin-echo, turbo spin echo, FLAIR, diffusion weighted scans are included. Pre- and dynamically acquired post gadolinium enhanced thin sections are acquired through the sella turcica. 6 ml of intravenous ProHance is administered. MRI findings: The most recent prior study showed a T1 hyperintense nonenhancing nodule in the right side of the sella turcica in the pituitary gland. This is again seen today. This T1 hyperintense nonenhancing nodule measures 5 mm anteroposterior by 6 mm craniocaudal by 4 mm right to left. It bulges the top of the pituitary gland slightly. The pituitary stalk is seen just to the left of midline unchanged. Suprasellar cistern and optic chiasm are unremarkable. There are mucosal changes in the sphenoid sinus left more so than right. These are less prominent than on prior studies. No other intracranial mass lesion is seen. Pituitary enhancement is otherwise homogeneous. King-white differentiation pattern is preserved. Ventricular size is normal and unchanged. No extra-axial fluid collection is seen. Impression: Findings unchanged from December 21, 2017. There is a 5-6 mm nonenhancing T1 hyperintense nodule in the right side of the pituitary gland unchanged from most recent prior study. Electronically Signed by Morgan Rothman MD 07/19/2018 07:58 P
== END ==
LOC: M RAD 07:35
PROVIDERS: ATTEND Neurological Surgery
DX: D35.2 Benign neoplasm of pituitary gland (principal)
CPT/HCPCS: 70553; A9576

== ENCOUNTER → 2018-08-09 | Outpatient (REF) | payer BC ==
[~2018-08-09] MED LIST changes: -PROHANCE 279.3MG/ML 15ML VIAL (A9576) As Ordered ONE
[2018-08-09 12:57] LABS: BASO % 0.6 % (0.0-1.0); EOS # 0.4 10^3/uL (0.0-0.50); EOS % 5.1 % (0.0-3.0); HEMATOCRIT 38.7 % (36.0-47.0); HEMOGLOBIN 12.9 g/dl (12.0-15.5); LYMPH # 2.2 10^3/uL (1.5-4.5); LYMPH % 31.4 % (24.0-44.0); MEAN CORPUSCULAR HEMOGLOBIN 32.6 pg (27.0-33.0); MEAN CORPUSCULAR HGB CONC 33.3 g/dl (32.0-36.5); MEAN CORPUSCULAR VOLUME 97.7 fl (80.0-96.0); MONO # 0.3 10^3/uL (0.0-0.8); MONO % 4.7 % (0.0-5.0); NEUTROPHILS # 4.1 10^3/uL (1.8-7.7); NEUTROPHILS % 57.9 % (36.0-66.0); PLATELET COUNT, AUTOMATED 177 10^3/uL (150-450); RED BLOOD COUNT 3.96 10^6/uL (4.00-5.40)
[2018-08-09 13:26] LABS: PERCENT SATURATION 35.2 % (13.2-45.0)
== END ==
LOC: M LABDRWAD 12:17
PROVIDERS: ATTEND Psychiatry & Neurology Neurology
DX: E53.8 Deficiency of other specified B group vitamins (principal)

== ENCOUNTER → 2018-10-14 | Outpatient (REF) | payer BC ==
[2018-10-14 12:42] LABS: BASO # 0.1 10^3/uL (0.0-0.2); BASO % 0.7 % (0.0-1.0); EOS # 0.3 10^3/uL (0.0-0.50); EOS % 4.2 % (0.0-3.0); HEMATOCRIT 40.6 % (36.0-47.0); HEMOGLOBIN 13.7 g/dl (12.0-15.5); LYMPH % 30.4 % (24.0-44.0); MEAN CORPUSCULAR HEMOGLOBIN 32.1 pg (27.0-33.0); MEAN CORPUSCULAR HGB CONC 33.7 g/dl (32.0-36.5); MEAN CORPUSCULAR VOLUME 95.1 fl (80.0-96.0); MONO # 0.5 10^3/uL (0.0-0.8); NEUTROPHILS # 3.8 10^3/uL (1.8-7.7); NEUTROPHILS % 57.4 % (36.0-66.0); PLATELET COUNT, AUTOMATED 173 10^3/uL (150-450); RED BLOOD COUNT 4.27 10^6/uL (4.00-5.40); WHITE BLOOD COUNT 6.7 10^3/uL (4.0-10.0)
[2018-10-14 12:50] LABS: ALBUMIN 3.7 GM/DL (3.2-5.2); ALT/SGPT 19 U/L (12-78); BILIRUBIN,TOTAL 0.4 MG/DL (0.2-1.0); BLOOD UREA NITROGEN 11 MG/DL (7-18); CALCIUM LEVEL 8.7 MG/DL (8.5-10.1); CARBON DIOXIDE LEVEL 25 MEQ/L (21-32); CHLORIDE LEVEL 112 MEQ/L (98-107); CREATININE FOR GFR 0.79 MG/DL (0.55-1.30); FERRITIN 19 NG/ML (8-252); GLOMERULAR FILTRATION RATE > 60.0 (>60); GLUCOSE, FASTING 82 MG/DL (70-100); IRON (FE) 146 UG/DL (50-170); PERCENT SATURATION 47.1 % (13.2-45.0); POTASSIUM SERUM 4.4 MEQ/L (3.5-5.1); SODIUM LEVEL 142 MEQ/L (136-145); TOTAL IRON BINDING CAPACITY 310 UG/DL (250-450); TOTAL PROTEIN 7.1 GM/DL (6.4-8.2)
[2018-10-14 12:58] LABS: VITAMIN B12 LEVEL 525 PG/ML
== END ==
LOC: M LABDRWAD 12:11
PROVIDERS: ATTEND Physician Assistant
DX: D50.9 Iron deficiency anemia, unspecified (principal)

== ENCOUNTER 2018-10-31 10:43 | Outpatient (CLI) | payer BC ==
[~2018-10-31] VITALS: Ht 154.9 cm; Wt 65.0 kg
[2018-10-31 10:50] VITALS: BP 109/65
[2018-10-31] MEDS ORDERED: b12 injection AD (11:08)
[2018-10-31 11:29] VITALS: BP 105/61
[2018-10-31 11:50] VITALS: BP 105/68
[2018-10-31] MEDS ORDERED: IRON SUCROSE 500 MG in NS 250 ML OVER 4 HRS IV ONE (12:00)
[2018-10-31 12:50] VITALS: BP 116/60
[2018-10-31 13:50] VITALS: BP 99/60
[2018-10-31 14:40] VITALS: BP 108/66
== END 2018-10-31 14:40 | disposition home or self-care (01) ==
LOC: M INFU 10:43
PROVIDERS: ATTEND Family Medicine
DX: D64.9 Anemia, unspecified (principal)
CPT/HCPCS: 96365; 96366; J1756

== ENCOUNTER → 2018-12-24 | Outpatient (REF) | payer BC ==
[~2018-12-24] MED LIST changes: +b12 injection AD
[2018-12-24 20:32] LABS: BASO # 0.1 10^3/uL (0.0-0.2); BASO % 0.8 % (0.0-1.0); EOS # 0.3 10^3/uL (0.0-0.5); EOS % 3.5 % (0.0-3.0); HEMOGLOBIN 12.4 g/dl (12.0-15.5); LYMPH # 2.4 10^3/uL (1.5-5.0); LYMPH % 30.4 % (24.0-44.0); MEAN CORPUSCULAR HEMOGLOBIN 32.5 pg (27.0-33.0); MEAN CORPUSCULAR HGB CONC 33.5 g/dl (32.0-36.5); MEAN CORPUSCULAR VOLUME 96.9 fl (80.0-96.0); MONO # 0.5 10^3/uL (0.0-0.8); NEUTROPHILS # 4.7 10^3/uL (1.5-8.5); NEUTROPHILS % 59.2 % (36.0-66.0); PLATELET COUNT, AUTOMATED 164 10^3/uL (150-450); RED BLOOD COUNT 3.82 10^6/uL (4.00-5.40); WHITE BLOOD COUNT 7.9 10^3/uL (4.0-10.0)
[2018-12-24 20:41] LABS: FERRITIN 62 NG/ML (8-252)
[2018-12-24 20:46] LABS: VITAMIN B12 LEVEL 442 PG/ML (247-911)
== END ==
LOC: M LABDRWAD 09:34
PROVIDERS: ATTEND Family Medicine
DX: D50.9 Iron deficiency anemia, unspecified (principal)

== ENCOUNTER 2019-01-22 07:52 | Outpatient (CLI) | payer BC ==
[~2019-01-22] VITALS: Ht 154.9 cm; Wt 63.6 kg
[2019-01-22] VITALS (7 sets, daily range): BP systolic 100–118; BP diastolic 61–77
[2019-01-22] MEDS ORDERED: IRON SUCROSE 500 MG in NS 250 ML IV ONE (09:00)
[2019-01-22] MEDS ORDERED: BENA25CA4 PO (09:48)
== END 2019-01-22 13:40 | disposition home or self-care (01) ==
LOC: M INFU 07:52
PROVIDERS: ATTEND Family Medicine
DX: D50.9 Iron deficiency anemia, unspecified (principal)
CPT/HCPCS: 96365; 96366; J1756

== ENCOUNTER → 2019-01-30 | Outpatient (REF) | payer BC ==
[~2019-01-30] MED LIST changes: +BENA25CA4 PO
[2019-01-30 13:55] LABS: BLOOD UREA NITROGEN 10 MG/DL (7-18); CALCIUM LEVEL 8.3 MG/DL (8.5-10.1); CARBON DIOXIDE LEVEL 23 MEQ/L (21-32); CHLORIDE LEVEL 111 MEQ/L (98-107); CORTISOL AM 10.5 UG/DL (4.3-22.4); CREATININE FOR GFR 0.65 MG/DL (0.55-1.30); FREE T4 1.34 NG/DL (0.76-1.46); GLOMERULAR FILTRATION RATE > 60.0 (>60); GLUCOSE, FASTING 76 MG/DL (70-100); POTASSIUM SERUM 4.7 MEQ/L (3.5-5.1); SODIUM LEVEL 141 MEQ/L (136-145)
== END ==
LOC: M LABDRAW1 12:25
PROVIDERS: ATTEND Nurse Practitioner Family
DX: D35.2 Benign neoplasm of pituitary gland (principal)

== ENCOUNTER → 2019-03-13 | Outpatient (REF) | payer BC ==
[2019-03-13 17:18] LABS: BASO # 0.1 10^3/uL (0.0-0.2); BASO % 0.5 % (0.0-1.0); EOS # 0.2 10^3/uL (0.0-0.5); EOS % 1.8 % (0.0-3.0); HEMATOCRIT 39.9 % (36.0-47.0); HEMOGLOBIN 13.2 g/dl (12.0-15.5); LYMPH # 2.2 10^3/uL (1.5-5.0); LYMPH % 23.6 % (24.0-44.0); MEAN CORPUSCULAR HEMOGLOBIN 32.1 pg (27.0-33.0); MEAN CORPUSCULAR HGB CONC 33.1 g/dl (32.0-36.5); MEAN CORPUSCULAR VOLUME 97.1 fl (80.0-96.0); MONO # 0.4 10^3/uL (0.0-0.8); MONO % 3.8 % (0.0-5.0); NEUTROPHILS # 6.4 10^3/uL (1.5-8.5); NEUTROPHILS % 69.2 % (36.0-66.0); PLATELET COUNT, AUTOMATED 174 10^3/uL (150-450); RED BLOOD COUNT 4.11 10^6/uL (4.00-5.40); WHITE BLOOD COUNT 9.2 10^3/uL (4.0-10.0)
[2019-03-13 17:42] LABS: FERRITIN 144 NG/ML (8-252)
[2019-03-13 17:50] LABS: VITAMIN B12 LEVEL 446 PG/ML (247-911)
== END ==
LOC: M LABDRWAD 16:18 → M LAB REF 16:18
PROVIDERS: ATTEND Family Medicine
DX: D50.9 Iron deficiency anemia, unspecified (principal); D51.9 Vitamin B12 deficiency anemia, unspecified

== ENCOUNTER → 2019-06-13 | Outpatient (REF) | payer BC ==
[2019-06-13 16:16] LABS: BASO % 0.6 % (0.0-1.0); EOS # 0.2 10^3/uL (0.0-0.5); EOS % 2.7 % (0.0-3.0); HEMOGLOBIN 13.6 g/dl (12.0-15.5); LYMPH # 2.1 10^3/uL (1.5-5.0); LYMPH % 30.7 % (24.0-44.0); MEAN CORPUSCULAR HEMOGLOBIN 31.9 pg (27.0-33.0); MEAN CORPUSCULAR HGB CONC 33.2 g/dl (32.0-36.5); MEAN CORPUSCULAR VOLUME 96.2 fl (80.0-96.0); MONO # 0.4 10^3/uL (0.0-0.8); MONO % 6.2 % (0.0-5.0); NEUTROPHILS % 59.7 % (36.0-66.0); PLATELET COUNT, AUTOMATED 181 10^3/uL (150-450); RED BLOOD COUNT 4.26 10^6/uL (4.00-5.40); WHITE BLOOD COUNT 6.7 10^3/uL (4.0-10.0)
[2019-06-13 16:24] LABS: ALBUMIN 3.7 GM/DL (3.2-5.2); ALT/SGPT 20 U/L (12-78); BILIRUBIN,TOTAL 0.3 MG/DL (0.2-1.0); BLOOD UREA NITROGEN 11 MG/DL (7-18); CALCIUM LEVEL 8.3 MG/DL (8.5-10.1); CARBON DIOXIDE LEVEL 27 MEQ/L (21-32); CHLORIDE LEVEL 111 MEQ/L (98-107); CREATININE FOR GFR 0.66 MG/DL (0.55-1.30); FERRITIN 106 NG/ML (8-252); GLOMERULAR FILTRATION RATE > 60.0 (>60); GLUCOSE, FASTING 82 MG/DL (70-100); IRON (FE) 121 UG/DL (50-170); MAGNESIUM LEVEL 2.1 MG/DL (1.8-2.4); PERCENT SATURATION 49.2 % (13.2-45.0); POTASSIUM SERUM 4.5 MEQ/L (3.5-5.1); SODIUM LEVEL 141 MEQ/L (136-145); TOTAL IRON BINDING CAPACITY 246 UG/DL (250-450); TOTAL PROTEIN 6.5 GM/DL (6.4-8.2)
[2019-06-13 16:32] LABS: TOTAL 25(OH) VITAMIN D 21.5 NG/ML (30.0-100.0); VITAMIN B12 LEVEL 915 PG/ML (247-911)
== END ==
LOC: M LABDRWAD 15:34
PROVIDERS: ATTEND Family Medicine
DX: Z98.84 Bariatric surgery status (principal); D51.9 Vitamin B12 deficiency anemia, unspecified; D50.9 Iron deficiency anemia, unspecified

== ENCOUNTER → 2019-12-23 | Outpatient (CLI) | payer BC ==
[2019-12-23 12:45] LABS: BASO % 0.6 % (0.0-1.0); EOS # 0.2 10^3/uL (0.0-0.5); EOS % 3.5 % (0.0-3.0); HEMATOCRIT 44.5 % (36.0-47.0); HEMOGLOBIN 14.4 g/dl (12.0-15.5); LYMPH # 2.1 10^3/uL (1.5-5.0); LYMPH % 30.6 % (24.0-44.0); MEAN CORPUSCULAR HEMOGLOBIN 31.5 pg (27.0-33.0); MEAN CORPUSCULAR HGB CONC 32.4 g/dl (32.0-36.5); MEAN CORPUSCULAR VOLUME 97.4 fl (80.0-96.0); MONO # 0.4 10^3/uL (0.0-0.8); MONO % 5.9 % (0.0-5.0); NEUTROPHILS # 4.1 10^3/uL (1.5-8.5); NEUTROPHILS % 59.1 % (36.0-66.0); PLATELET COUNT, AUTOMATED 191 10^3/uL (150-450); RED BLOOD COUNT 4.57 10^6/uL (4.00-5.40); WHITE BLOOD COUNT 6.9 10^3/uL (4.0-10.0)
[2019-12-23 12:54] LABS: ALBUMIN 3.4 GM/DL (3.2-5.2); ALT/SGPT 20 U/L (12-78); BILIRUBIN,TOTAL 0.2 MG/DL (0.2-1.0); BLOOD UREA NITROGEN 8 MG/DL (7-18); CALCIUM LEVEL 8.3 MG/DL (8.5-10.1); CARBON DIOXIDE LEVEL 26 MEQ/L (21-32); CHLORIDE LEVEL 110 MEQ/L (98-107); CREATININE FOR GFR 0.74 MG/DL (0.55-1.30); FERRITIN 78 NG/ML (8-252); FREE T4 1.64 NG/DL (0.76-1.46); GLOMERULAR FILTRATION RATE > 60.0 (>58); GLUCOSE, FASTING 89 MG/DL (70-100); IRON (FE) 109 UG/DL (50-170); PERCENT SATURATION 38.9 % (13.2-45.0); POTASSIUM SERUM 4.8 MEQ/L (3.5-5.1); SODIUM LEVEL 142 MEQ/L (136-145); TOTAL IRON BINDING CAPACITY 280 UG/DL (250-450); TOTAL PROTEIN 6.9 GM/DL (6.4-8.2)
[2019-12-23 13:32] LABS: TOTAL 25(OH) VITAMIN D 30.7 NG/ML (30.0-100.0)
[2019-12-23 13:33] LABS: VITAMIN B12 LEVEL 467 PG/ML (247-911)
== END ==
LOC: M WUC 08:45
PROVIDERS: ATTEND Family Medicine
DX: D50.9 Iron deficiency anemia, unspecified (principal); E55.9 Vitamin D deficiency, unspecified; D51.9 Vitamin B12 deficiency anemia, unspecified; Z98.84 Bariatric surgery status

== ENCOUNTER → 2020-01-01 | Outpatient (CLI) | payer BC ==
--- NOTE | 2020-01-09 08:18 | REP ---
MAXILLOFACIAL CT STUDY WITHOUT CONTRAST HISTORY: Headache. COMPARISON: Made with images from brain MRI study of 07/19/2018. CT FINDINGS: There is moderate mucosal thickening circumferentially around the margin of the left side of the sphenoid sinus. Right sphenoid sinus is clear. Maxillary sinuses are clear except for some mild mucosal thickening and mucous retention cyst formation inferiorly on each side. Ostiomeatal complexes are widely patent bilaterally. Nasal turbinate soft tissues are symmetric. There is evidence of a septal deficit or perforation posteriorly and superiorly in the nasal cavity. This deficit measures 1.1 cm craniocaudal x 1.2 cm anterior to posterior. Nasal ethmoid recesses are clear. Frontal sinuses and ethmoid sinuses are clear. Mastoid aeration is normal and symmetric. Middle ear cavities are aerated. No intraorbital abnormality is seen. No intracranial abnormality is observed. IMPRESSION: There is evidence of a posterosuperior nasal septal perforation or deficit. There is left sphenoid sinus mucosal thickening 2-3 mm in thickness. Small mucous retention cysts are seen in the inferior aspect of each maxillary sinus. Otherwise negative. MTDD
== END ==
LOC: M RAD 13:47
PROVIDERS: ATTEND Specialist
DX: R51 Headache (principal); J34.1 Cyst and mucocele of nose and nasal sinus; J32.3 Chronic sphenoidal sinusitis

== ENCOUNTER → 2020-03-23 | Outpatient (CLI) | payer BC ==
[2020-03-23 12:11] LABS: BASO % 0.6 % (0.0-1.0); EOS # 0.3 10^3/uL (0.0-0.5); EOS % 4.2 % (0.0-3.0); HEMATOCRIT 43.8 % (36.0-47.0); HEMOGLOBIN 14.2 g/dl (12.0-15.5); LYMPH % 32.4 % (24.0-44.0); MEAN CORPUSCULAR HEMOGLOBIN 31.1 pg (27.0-33.0); MEAN CORPUSCULAR HGB CONC 32.4 g/dl (32.0-36.5); MEAN CORPUSCULAR VOLUME 95.8 fl (80.0-96.0); MONO # 0.3 10^3/uL (0.0-0.8); MONO % 5.4 % (0.0-5.0); NEUTROPHILS # 3.6 10^3/uL (1.5-8.5); NEUTROPHILS % 57.2 % (36.0-66.0); PLATELET COUNT, AUTOMATED 201 10^3/uL (150-450); RED BLOOD COUNT 4.57 10^6/uL (4.00-5.40); WHITE BLOOD COUNT 6.3 10^3/uL (4.0-10.0)
[2020-03-23 12:56] LABS: ALBUMIN 3.7 GM/DL (3.2-5.2); ALT/SGPT 16 U/L (12-78); BILIRUBIN,TOTAL 0.4 MG/DL (0.2-1.0); BLOOD UREA NITROGEN 9 MG/DL (7-18); CALCIUM LEVEL 8.8 MG/DL (8.5-10.1); CARBON DIOXIDE LEVEL 26 MEQ/L (21-32); CHLORIDE LEVEL 107 MEQ/L (98-107); FERRITIN 91 NG/ML (8-252); FOLATE 3.6 NG/ML; GLOMERULAR FILTRATION RATE > 60.0 (>58); GLUCOSE, FASTING 122 MG/DL (70-100); SODIUM LEVEL 138 MEQ/L (136-145); TOTAL 25(OH) VITAMIN D 36.3 NG/ML (30.0-100.0); TOTAL PROTEIN 7.1 GM/DL (6.4-8.2); VITAMIN B12 LEVEL 901 PG/ML
== END ==
LOC: M WUC 08:52
PROVIDERS: ATTEND Physician Assistant
DX: D50.9 Iron deficiency anemia, unspecified (principal); D51.9 Vitamin B12 deficiency anemia, unspecified; E55.9 Vitamin D deficiency, unspecified; Z98.84 Bariatric surgery status

== ENCOUNTER → 2020-08-11 | Outpatient (REF) | payer BC ==
[2020-08-11 12:41] LABS: BASO # 0.1 10^3/uL (0.0-0.2); BASO % 0.8 % (0.0-1.0); EOS # 0.3 10^3/uL (0.0-0.5); EOS % 3.7 % (0.0-3.0); HEMATOCRIT 41.5 % (36.0-47.0); HEMOGLOBIN 13.8 g/dl (12.0-15.5); LYMPH # 2.5 10^3/uL (1.5-5.0); LYMPH % 35.1 % (24.0-44.0); MEAN CORPUSCULAR HEMOGLOBIN 32.2 pg (27.0-33.0); MEAN CORPUSCULAR HGB CONC 33.3 g/dl (32.0-36.5); MEAN CORPUSCULAR VOLUME 96.7 fl (80.0-96.0); MONO # 0.4 10^3/uL (0.0-0.8); MONO % 5.8 % (2.0-8.0); NEUTROPHILS # 3.8 10^3/uL (1.5-8.5); NEUTROPHILS % 54.3 % (36.0-66.0); PLATELET COUNT, AUTOMATED 195 10^3/uL (150-450); RED BLOOD COUNT 4.29 10^6/uL (4.00-5.40); WHITE BLOOD COUNT 7.1 10^3/uL (4.0-10.0)
[2020-08-11 13:34] LABS: ALBUMIN 3.9 GM/DL (3.2-5.2); ALT/SGPT 20 U/L (12-78); BILIRUBIN,TOTAL 0.4 MG/DL (0.2-1.0); BLOOD UREA NITROGEN 10 MG/DL (7-18); CALCIUM LEVEL 8.9 MG/DL (8.5-10.1); CARBON DIOXIDE LEVEL 24 MEQ/L (21-32); CHLORIDE LEVEL 112 MEQ/L (98-107); CREATININE FOR GFR 0.63 MG/DL (0.55-1.30); FERRITIN 80 NG/ML (8-252); FOLATE 3.1 NG/ML; FREE T4 1.29 NG/DL (0.76-1.46); GLOMERULAR FILTRATION RATE > 60.0 (>58); GLUCOSE, FASTING 94 MG/DL (70-100); IRON (FE) 97 UG/DL (50-170); POTASSIUM SERUM 5.2 MEQ/L (3.5-5.1); SODIUM LEVEL 140 MEQ/L (136-145); TOTAL 25(OH) VITAMIN D 20.6 NG/ML (30.0-100.0); TOTAL IRON BINDING CAPACITY 255 UG/DL (250-450); TOTAL PROTEIN 6.8 GM/DL (6.4-8.2); VITAMIN B12 LEVEL 365 PG/ML
== END ==
LOC: M LABDRWAD 12:18
PROVIDERS: ATTEND Physician Assistant
DX: F41.1 Generalized anxiety disorder (principal); Z98.84 Bariatric surgery status

== ENCOUNTER → 2020-09-14 | Outpatient (CLI) | payer BC ==
[2020-09-14 20:52] LABS: C REACTIVE PROTEIN QUANTITATIV < 0.30 MG/DL (0.00-0.30); RHEUMATOID FACTOR QUANT < 10.0 IU/ML (<15.0)
[2020-09-14 21:04] LABS: TOTAL 25(OH) VITAMIN D 26.8 NG/ML (30.0-100.0)
[2020-09-14 21:05] LABS: FOLATE 2.7 NG/ML; VITAMIN B12 LEVEL 969 PG/ML
[2020-09-17 00:08] LABS: ANTINUCLEAR ANTIBODIES DIRECT Negative (Negative); CYCLIC CITRULLINATED PEPTIDE 7 units (0-19); Lyme Disease IgG/IgM Antibodie <0.91 ISR (0.00-0.90); Lyme Disease IgM Ab Quantitati <0.80 index (0.00-0.79)
== END ==
LOC: M WUC 15:30
PROVIDERS: ATTEND Physician Assistant
DX: M25.50 Pain in unspecified joint (principal); D51.9 Vitamin B12 deficiency anemia, unspecified; E55.9 Vitamin D deficiency, unspecified

== ENCOUNTER → 2020-09-17 | Outpatient (CLI) | payer BC ==
--- NOTE | 2020-09-19 04:01 | REP ---
INDICATION: PAIN COMPARISON: None. TECHNIQUE: Internal rotation, external rotation, and Y view. FINDINGS: Mild cortical irregularity at the acromioclavicular joint. Subacromial space is normal. No significant periarticular calcifications or loose bodies are identified. There is subtle increased sclerosis and mild blunting to the glenoid rim with possible small adjacent loose body projecting along the posterior 3 o'clock position. The humeral head appears relatively normal. No acute fracture or dislocation. IMPRESSION: Mild degenerative changes as described above. <Electronically signed by Uvaldo Gould > 09/19/20 [id number]
--- NOTE | 2020-09-19 04:18 | REP ---
INDICATION: PAIN COMPARISON: None. TECHNIQUE: AP, lateral, bilateral oblique views right hand. FINDINGS: The osseous structures and joint spaces are intact and normal. There is no evidence for acute fracture or dislocation. Surrounding soft tissues are unremarkable. No subcutaneous emphysema or radiodense foreign body. IMPRESSION: Normal right hand radiograph series. <Electronically signed by Uvaldo Gould > 09/19/20 [id number]
== END ==
LOC: M WUC 14:12
PROVIDERS: ATTEND Physician Assistant
DX: M25.512 Pain in left shoulder (principal); M25.541 Pain in joints of right hand

== ENCOUNTER → 2020-10-01 | Outpatient (CLI) | payer BC ==
--- NOTE | 2020-10-01 14:49 | REP ---
INDICATION: LT SHOULDER PAIN. COMPARISON: Radiographs 09/17/2020. TECHNIQUE: Coronal oblique T1, T2 fat sat, sagittal oblique T2 fat sat, axial T2 fat sat, gradient echo. FINDINGS: Rotator cuff: There is moderate tendinopathy/tendinitis of the distal supraspinatus tendon with a possible partial undersurface tear. Acromioclavicular joint: There are mild hypertrophic degenerative changes of the acromioclavicular joint. Acromion: Type 1 Biceps Tendon: In bicipital groove, no tenosynovitis. Hill Sach's deformity: None. Deltoid muscle: No abnormal signal. Biceps labral complex: Intact. Labrum: No tear. Cartilage: No defects. Bone marrow: No abnormal signal. Joint fluid: No effusion. IMPRESSION: Moderate tendinopathy/tendinitis of the distal supraspinatus tendon with a possible partial undersurface tear. There are mild hypertrophic degenerative changes of the acromioclavicular joint. No evidence of a labral tear. <Electronically signed by Blake King > 10/01/20 [id number]
== END ==
LOC: M PLARAD 10:20
PROVIDERS: ATTEND Physician Assistant
DX: M75.32 Calcific tendinitis of left shoulder (principal); M25.512 Pain in left shoulder

== ENCOUNTER 2020-11-21 15:07 | Emergency (ER) | payer BC ==
[~2020-11-21] VITALS: Ht 157.5 cm; Wt 60.9 kg
--- NOTE | 2020-11-21 15:37 | REP ---
INDICATION: punched a wall. COMPARISON: None. TECHNIQUE: Three views FINDINGS: Comminuted nondisplaced fracture base 5th metacarpal. Adjacent soft tissue swelling. No other fractures. IMPRESSION: Comminuted nondisplaced fracture base 5th metacarpal. <Electronically signed by Josh Martin > 11/21/20 [id number]
[2020-11-21] MEDS ORDERED: KETOROLAC 30 MG/ML 1ML VIAL IM ONE (17:20)
[2020-11-21] MEDS ORDERED: OXYC1TAB23 PO (17:58)
[2020-11-21] MEDS ORDERED: IBUP80TA PO (17:58)
[2020-11-21 18:09] VITALS: BP 121/72
== END 2020-11-21 18:51 | disposition home or self-care (01) ==
LOC: M ED 15:07
DX: S62.346A Nondisplaced fracture of base of fifth metacarpal bone, right hand, initial encounter for closed fracture (principal); W22.09XA Striking against other stationary object, initial encounter; Y92.009 Unspecified place in unspecified non-institutional (private) residence as the place of occurrence of the external cause; Y93.9 Activity, unspecified; Y99.9 Unspecified external cause status; F17.200 Nicotine dependence, unspecified, uncomplicated
CPT/HCPCS: 73130; 96372; 99283; J1885

== ENCOUNTER → 2020-12-30 | Outpatient (CLI) | payer BC ==
[~2020-12-30] MED LIST changes: +IBUP80TA PO; +OXYC1TAB23 PO
--- NOTE | 2020-12-30 10:57 | REP ---
INDICATION: RT HAND FX. COMPARISON: Comparison radiographs of the right hand are from November 21, 2020. TECHNIQUE: Three views of the right hand. FINDINGS: The comminuted fracture across the proximal metaphysis of the 5th metacarpal is again seen unchanged in alignment. There is less soft tissue fullness. No definite periosteal reaction. IMPRESSION: Proximal 5th metacarpal fracture unchanged in alignment from November 21, 2020. <Electronically signed by Garland Rothman > 12/30/20 [id number]
== END ==
LOC: M SOG 10:19
PROVIDERS: ATTEND Student in an Organized Health Care Education/Training Program
DX: S62.316A Displaced fracture of base of fifth metacarpal bone, right hand, initial encounter for closed fracture (principal); W18.30XA Fall on same level, unspecified, initial encounter; Y92.009 Unspecified place in unspecified non-institutional (private) residence as the place of occurrence of the external cause

== ENCOUNTER → 2021-01-26 | Outpatient (CLI) | payer BC ==
[2021-01-26 12:34] LABS: BASO # 0.1 10^3/uL (0.0-0.2); BASO % 0.7 % (0.0-1.0); EOS # 0.2 10^3/uL (0.0-0.5); EOS % 3.4 % (0.0-3.0); HEMATOCRIT 39.5 % (36.0-47.0); HEMOGLOBIN 12.9 g/dl (12.0-15.5); LYMPH # 1.9 10^3/uL (1.5-5.0); LYMPH % 27.8 % (24.0-44.0); MEAN CORPUSCULAR HGB CONC 32.7 g/dl (32.0-36.5); MONO # 0.5 10^3/uL (0.0-0.8); MONO % 6.7 % (2.0-8.0); NEUTROPHILS # 4.1 10^3/uL (1.5-8.5); NEUTROPHILS % 61.1 % (36.0-66.0); PLATELET COUNT, AUTOMATED 198 10^3/uL (150-450); RED BLOOD COUNT 4.03 10^6/uL (4.00-5.40); WHITE BLOOD COUNT 6.7 10^3/uL (4.0-10.0)
[2021-01-26 13:00] LABS: ALBUMIN 3.3 GM/DL (3.2-5.2); ALT/SGPT 20 U/L (12-78); BILIRUBIN,TOTAL 0.3 MG/DL (0.2-1.0); BLOOD UREA NITROGEN 13 MG/DL (7-18); CALCIUM LEVEL 8.4 MG/DL (8.5-10.1); CARBON DIOXIDE LEVEL 27 MEQ/L (21-32); CHLORIDE LEVEL 112 MEQ/L (98-107); CREATININE FOR GFR 0.59 MG/DL (0.55-1.30); FERRITIN 59 NG/ML (8-252); FOLATE 3.1 NG/ML; FREE T4 1.85 NG/DL (0.76-1.46); GLOMERULAR FILTRATION RATE > 60.0 (>58); GLUCOSE, FASTING 81 MG/DL (70-100); POTASSIUM SERUM 4.3 MEQ/L (3.5-5.1); SODIUM LEVEL 142 MEQ/L (136-145); TOTAL 25(OH) VITAMIN D 41.1 NG/ML (30.0-100.0); TOTAL PROTEIN 6.4 GM/DL (6.4-8.2); VITAMIN B12 LEVEL 423 PG/ML
== END ==
LOC: M WUC 09:16
PROVIDERS: ATTEND Physician Assistant
DX: F33.1 Major depressive disorder, recurrent, moderate (principal); Z98.84 Bariatric surgery status

== ENCOUNTER → 2021-05-05 | Outpatient (CLI) | payer BC ==
[2021-05-05 17:13] LABS: ALBUMIN 3.5 GM/DL (3.2-5.2); ALT/SGPT 23 U/L (12-78); BILIRUBIN,TOTAL 0.2 MG/DL (0.2-1.0); BLOOD UREA NITROGEN 7 MG/DL (7-18); CALCIUM LEVEL 8.1 MG/DL (8.5-10.1); CARBON DIOXIDE LEVEL 27 MEQ/L (21-32); CHLORIDE LEVEL 110 MEQ/L (98-107); CREATININE FOR GFR 0.66 MG/DL (0.55-1.30); FERRITIN 123 NG/ML (8-252); GLOMERULAR FILTRATION RATE > 60.0 (>58); GLUCOSE, FASTING 84 MG/DL (70-100); IRON (FE) 108 UG/DL (50-170); PERCENT SATURATION 43.7 % (13.2-45.0); POTASSIUM SERUM 4.1 MEQ/L (3.5-5.1); SODIUM LEVEL 140 MEQ/L (136-145); TOTAL IRON BINDING CAPACITY 247 UG/DL (250-450); TOTAL PROTEIN 6.6 GM/DL (6.4-8.2)
[2021-05-05 17:24] LABS: BASO % 0.4 % (0.0-1.0); EOS # 0.1 10^3/uL (0.0-0.5); EOS % 2.9 % (0.0-3.0); HEMATOCRIT 38.3 % (36.0-47.0); HEMOGLOBIN 12.5 g/dl (12.0-15.5); LYMPH # 1.5 10^3/uL (1.5-5.0); LYMPH % 33.3 % (24.0-44.0); MEAN CORPUSCULAR HEMOGLOBIN 31.3 pg (27.0-33.0); MEAN CORPUSCULAR HGB CONC 32.6 g/dl (32.0-36.5); MONO # 0.3 10^3/uL (0.0-0.8); NEUTROPHILS # 2.6 10^3/uL (1.5-8.5); NEUTROPHILS % 56.2 % (36.0-66.0); PLATELET COUNT, AUTOMATED 173 10^3/uL (150-450); RED BLOOD COUNT 3.99 10^6/uL (4.00-5.40); WHITE BLOOD COUNT 4.5 10^3/uL (4.0-10.0)
[2021-05-06 10:51] LABS: TOTAL 25(OH) VITAMIN D 59.4 NG/ML (30.0-100.0)
[2021-05-06 12:14] LABS: VITAMIN B12 LEVEL 598 PG/ML (247-911)
== END ==
LOC: M WUC 14:26
PROVIDERS: ATTEND Family Medicine
DX: D50.9 Iron deficiency anemia, unspecified (principal); D51.9 Vitamin B12 deficiency anemia, unspecified; Z98.84 Bariatric surgery status; E55.9 Vitamin D deficiency, unspecified

== ENCOUNTER → 2021-07-05 | Outpatient (CLI) | payer BC | LOC: M SOG 08:35 | PROVIDERS: ATTEND Orthopaedic Surgery | DX: M25.511 Pain in right shoulder (principal); M25.512 Pain in left shoulder; S62.316A Displaced fracture of base of fifth metacarpal bone, right hand, initial encounter for closed fracture ==

== ENCOUNTER → 2021-07-12 | Outpatient (CLI) | payer BC | LOC: M PLAIMG 14:37 | PROVIDERS: ATTEND Orthopaedic Surgery | DX: M75.41 Impingement syndrome of right shoulder (principal) ==

== ENCOUNTER → 2021-08-05 | Outpatient (CLI) | payer BC ==
[2021-08-05 12:52] LABS: BASO # 0.1 10^3/uL (0.0-0.2); BASO % 0.7 % (0.0-1.0); EOS # 0.2 10^3/uL (0.0-0.5); EOS % 2.7 % (0.0-3.0); HEMATOCRIT 40.9 % (36.0-47.0); HEMOGLOBIN 13.4 g/dl (12.0-15.5); LYMPH # 2.1 10^3/uL (1.5-5.0); LYMPH % 31.3 % (24.0-44.0); MEAN CORPUSCULAR HEMOGLOBIN 31.8 pg (27.0-33.0); MEAN CORPUSCULAR HGB CONC 32.8 g/dl (32.0-36.5); MEAN CORPUSCULAR VOLUME 97.1 fl (80.0-96.0); MONO # 0.4 10^3/uL (0.0-0.8); MONO % 6.3 % (2.0-8.0); NEUTROPHILS # 3.9 10^3/uL (1.5-8.5); NEUTROPHILS % 58.9 % (36.0-66.0); PLATELET COUNT, AUTOMATED 229 10^3/uL (150-450); RED BLOOD COUNT 4.21 10^6/uL (4.00-5.40); WHITE BLOOD COUNT 6.7 10^3/uL (4.0-10.0)
[2021-08-05 13:30] LABS: ALBUMIN 3.7 GM/DL (3.2-5.2); ALT/SGPT 24 U/L (12-78); BILIRUBIN,TOTAL 0.4 MG/DL (0.2-1.0); BLOOD UREA NITROGEN 10 MG/DL (7-18); CALCIUM LEVEL 8.9 MG/DL (8.5-10.1); CARBON DIOXIDE LEVEL 27 MEQ/L (21-32); CHLORIDE LEVEL 109 MEQ/L (98-107); CHOLESTEROL LEVEL 186 MG/DL (<200); CHOLESTEROL RISK RATIO 4.536 (<5); CREATININE FOR GFR 0.72 MG/DL (0.55-1.30); FERRITIN 74 NG/ML (8-252); FREE T4 1.82 NG/DL (0.76-1.46); GLOMERULAR FILTRATION RATE > 60.0 (>58); GLUCOSE, FASTING 92 MG/DL (70-100); HDL CHOLESTEROL 41 MG/DL (>40); IRON (FE) 115 UG/DL (50-170); LDL CHOLESTEROL 130 MG/DL (<100); NON-HDL-C 145 MG/DL; PERCENT SATURATION 45.1 % (13.2-45.0); POTASSIUM SERUM 4.6 MEQ/L (3.5-5.1); SODIUM LEVEL 139 MEQ/L (136-145); TOTAL IRON BINDING CAPACITY 255 UG/DL (250-450); TOTAL PROTEIN 6.8 GM/DL (6.4-8.2); TRIGLYCERIDES LEVEL 77 MG/DL (<150)
[2021-08-05 13:41] LABS: VITAMIN B12 LEVEL 270 PG/ML (247-911)
== END ==
LOC: M ADAMS 09:31
PROVIDERS: ATTEND Nurse Practitioner Adult Health
DX: D35.2 Benign neoplasm of pituitary gland (principal); D50.9 Iron deficiency anemia, unspecified; D51.9 Vitamin B12 deficiency anemia, unspecified; Z98.84 Bariatric surgery status

== ENCOUNTER → 2022-01-17 | Outpatient (CLI) | payer BC ==
[~2022-01-17] MED LIST changes: +PROHANCE 279.3MG/ML 15ML VIAL As Ordered ONE
== END ==
LOC: M RAD 14:45
PROVIDERS: ATTEND Nurse Practitioner Adult Health
DX: D35.2 Benign neoplasm of pituitary gland (principal)
CPT/HCPCS: 70553; A9576

== ENCOUNTER → 2022-08-10 | Outpatient (REF) | payer BC ==
[~2022-08-10] MED LIST changes: -PROHANCE 279.3MG/ML 15ML VIAL As Ordered ONE
[2022-08-10 16:45] LABS: BASO # 0.1 10^3/uL (0.0-0.2); EOS # 0.3 10^3/uL (0.0-0.5); EOS % 3.6 % (0.0-3.0); HEMATOCRIT 42.5 % (36.0-47.0); HEMOGLOBIN 13.9 g/dl (12.0-15.5); LYMPH # 2.7 10^3/uL (1.5-5.0); LYMPH % 36.7 % (24.0-44.0); MEAN CORPUSCULAR HEMOGLOBIN 32.3 pg (27.0-33.0); MEAN CORPUSCULAR HGB CONC 32.7 g/dl (32.0-36.5); MEAN CORPUSCULAR VOLUME 98.6 fl (80.0-96.0); MONO # 0.5 10^3/uL (0.0-0.8); MONO % 6.7 % (2.0-8.0); NEUTROPHILS # 3.8 10^3/uL (1.5-8.5); NEUTROPHILS % 51.7 % (36.0-66.0); PLATELET COUNT, AUTOMATED 196 10^3/uL (150-450); RED BLOOD COUNT 4.31 10^6/uL (4.00-5.40); WHITE BLOOD COUNT 7.3 10^3/uL (4.0-10.0)
[2022-08-10 17:16] LABS: IRON (FE) 113 UG/DL (50-170); TOTAL IRON BINDING CAPACITY 305 UG/DL (250-425)
[2022-08-10 17:17] LABS: ALBUMIN 3.9 G/DL (3.2-5.2); ALKALINE PHOSPHATASE 52 U/L (46-116); ALT/SGPT 16 U/L (7.0-40); AST/SGOT < 8 U/L (<34); BILIRUBIN,TOTAL 0.4 MG/DL (0.3-1.2); BLOOD UREA NITROGEN 10 MG/DL (9-23); CALCIUM LEVEL 8.4 MG/DL (8.5-10.1); CARBON DIOXIDE LEVEL 27 MMOL/L (20-31); CHLORIDE LEVEL 108 MMOL/L (98-107); CREATININE FOR GFR 0.62 MG/DL (0.55-1.30); FERRITIN 37.3 NG/ML (7.3-270.7); GLOMERULAR FILTRATION RATE > 60.0 (>58); GLUCOSE, FASTING 63 MG/DL (60-100); POTASSIUM SERUM 4.4 MMOL/L (3.5-5.1); SODIUM LEVEL 140 MMOL/L (136-145); TOTAL PROTEIN 6.6 G/DL (5.7-8.2)
[2022-08-10 17:18] LABS: FOLATE 8.4 NG/ML (>5.4); TOTAL 25(OH) VITAMIN D 33.5 NG/ML (20.0-100.0)
[2022-08-10 17:19] LABS: VITAMIN B12 LEVEL 396 PG/ML (211-911)
== END ==
LOC: M LABDRWAD 15:59
PROVIDERS: ATTEND Nurse Practitioner Adult Health
DX: D50.9 Iron deficiency anemia, unspecified (principal); Z98.84 Bariatric surgery status; D51.9 Vitamin B12 deficiency anemia, unspecified

== ENCOUNTER 2022-11-15 11:00 | Outpatient (CLI) | payer BC ==
[~2022-11-15] VITALS: Ht 154.9 cm; Wt 61.3 kg
[2022-11-15 10:59] VITALS: BP 129/71; O2SAT 99
[2022-11-15 11:00] VITALS: BP 129/71; O2SAT 99
[~2022-11-15 11:00] MED LIST changes: +ADDE20CA3 PO; +BUPR300T92 PO; +VYVA70CA3 PO
[2022-11-15] MEDS ORDERED: methylPREDNISolone 125MG 2ML VIAL IV ONE (11:40)
[2022-11-15] MEDS ORDERED: diphenhydrAMINE 25MG CAP PO ONE (11:40)
[2022-11-15] MEDS ORDERED: ACETAMINOPHEN TAB 650MG DOSE (2X325MG) PO ONE (11:40)
[2022-11-15] MEDS ORDERED: IRON SUCROSE 500 MG in NS 250 ML OVER 4 HRS IV ONE (12:00)
[2022-11-15 14:15] VITALS: BP 122/81; O2SAT 98
[2022-11-15 16:30] VITALS: BP 124/75; O2SAT 99
== END 2022-11-15 16:30 | disposition home or self-care (01) ==
LOC: M INFU 11:00
PROVIDERS: ATTEND Nurse Practitioner Adult Health
DX: D50.9 Iron deficiency anemia, unspecified (principal)
CPT/HCPCS: 96365; 96366; J1756; J2930

== ENCOUNTER → 2023-08-09 | Outpatient (CLI) | payer BC ==
[~2023-08-09] MED LIST changes: +BUPR-597 PO; -BUPR300T92 PO
[2023-08-09 18:01] LABS: BASO # 0.1 10^3/uL (0.0-0.2); EOS # 0.3 10^3/uL (0.0-0.5); EOS % 4.3 % (0.0-3.0); HEMATOCRIT 40.9 % (36.0-47.0); LYMPH # 2.5 10^3/uL (1.5-5.0); LYMPH % 36.9 % (24.0-44.0); MEAN CORPUSCULAR HEMOGLOBIN 32.9 pg (27.0-33.0); MEAN CORPUSCULAR HGB CONC 34.2 g/dl (32.0-36.5); MEAN CORPUSCULAR VOLUME 96.2 fl (80.0-96.0); MONO # 0.3 10^3/uL (0.0-0.8); MONO % 4.9 % (2.0-8.0); NEUTROPHILS # 3.5 10^3/uL (1.5-8.5); NEUTROPHILS % 52.6 % (36.0-66.0); PLATELET COUNT, AUTOMATED 198 10^3/uL (150-450); RED BLOOD COUNT 4.25 10^6/uL (4.00-5.40); WHITE BLOOD COUNT 6.7 10^3/uL (4.0-10.0)
[2023-08-09 18:34] LABS: PERCENT SATURATION 29.4 % (13.2-45.0)
[2023-08-09 18:38] LABS: FERRITIN 180.7 NG/ML (7.3-270.7); FOLATE 10.3 NG/ML (>5.4)
[2023-08-10 10:15] LABS: FOLLICLE STIMULATING HORMONE 53.6 mIU/ML; LUTEINIZING HORMONE 36.1 mIU/ML
[2023-08-14 16:09] LABS: ESTRONE SERUM 41 pg/mL (.)
== END ==
LOC: M PLALAB 15:53
PROVIDERS: ATTEND Nurse Practitioner Adult Health
DX: D50.9 Iron deficiency anemia, unspecified (principal); N95.9 Unspecified menopausal and perimenopausal disorder

== ENCOUNTER → 2023-08-27 | Outpatient (CLI) | payer BC | LOC: M SOG 07:57 | PROVIDERS: ATTEND Orthopaedic Surgery | DX: M25.511 Pain in right shoulder (principal); M25.512 Pain in left shoulder ==

== ENCOUNTER → 2023-08-27 | Outpatient (CLI) | payer BC ==
[2023-08-27 18:29] LABS: FOLLICLE STIMULATING HORMONE 48.4 mIU/ML; FREE T4 0.94 NG/DL (0.89-1.76); LUTEINIZING HORMONE 32.6 mIU/ML; THYROID STIMULATING HORMONE 1.106 uIU/ML (0.55-4.78)
[2023-08-27 18:30] LABS: FOLATE 7.7 NG/ML (>5.4); TOTAL 25(OH) VITAMIN D 32.5 NG/ML (20.0-100.0)
[2023-08-27 18:32] LABS: VITAMIN B12 LEVEL > 2000 PG/ML (211-911)
== END ==
LOC: M PLALAB 14:35
PROVIDERS: ATTEND Nurse Practitioner Adult Health
DX: R68.82 Decreased libido (principal); D51.9 Vitamin B12 deficiency anemia, unspecified; E55.9 Vitamin D deficiency, unspecified

== ENCOUNTER → 2023-09-07 | Outpatient (CLI) | payer BC | LOC: M PLARAD 14:45 | PROVIDERS: ATTEND Nurse Practitioner Adult Health | DX: D35.2 Benign neoplasm of pituitary gland (principal) ==

== ENCOUNTER → 2023-09-29 | Outpatient (CLI) | payer BC | LOC: M RAD 08:30 | PROVIDERS: ATTEND Orthopaedic Surgery | DX: S43.431D Superior glenoid labrum lesion of right shoulder, subsequent encounter (principal); M75.92 Shoulder lesion, unspecified, left shoulder; Y93.9 Activity, unspecified; Y92.9 Unspecified place or not applicable ==

== ENCOUNTER → 2023-10-29 | Outpatient (CLI) | payer BC ==
[~2023-10-29] MED LIST changes: +ISOVUE-300 61% 100ML VIAL As Ordered ONE; +LIDOCAINE 1% MDV 20ML VIAL As Ordered ONE; +methylPREDNISolone SUSP 40MG/ML 1ML VIAL (DEPO MEDROL) As Ordered ONE
== END ==
LOC: M RAD 12:47
PROVIDERS: ATTEND Orthopaedic Surgery
DX: M25.512 Pain in left shoulder (principal)
CPT/HCPCS: 20610; 77002; J0665; J1010; Q9967

== ENCOUNTER → 2023-11-27 | Outpatient (CLI) | payer BC ==
[~2023-11-27] MED LIST changes: -LIDOCAINE 1% MDV 20ML VIAL As Ordered ONE
== END ==
LOC: M RAD 14:56
PROVIDERS: ATTEND Orthopaedic Surgery
DX: M25.511 Pain in right shoulder (principal)
CPT/HCPCS: 20610; 77002; J0665; J1010; Q9967